=== PATIENT | male | born 1980 | race African-American/Black ===

== ENCOUNTER 2023-10-07 21:23 | Emergency (ER) | payer SELFPAY ==
[2023-10-07] MEDS ORDERED: HYDROcodone/Acetaminophen 5/325 mg Tablet ONE (22:38)
== END 2023-10-07 22:44 | disposition home or self-care (01) ==
LOC: ERS 21:23
DX: S63.501A Unspecified sprain of right wrist, initial encounter (principal); W23.1XXA Caught, crushed, jammed, or pinched between stationary objects, initial encounter
CPT/HCPCS: 29125